=== PATIENT | female | born 1960 | race Caucasian/White ===

== ENCOUNTER → 2016-03-31 | Outpatient (CLI) | payer MEDICAID | LOC: RAD 15:43 | PROVIDERS: ATTEND Physician Assistant | DX: R05 Cough (principal) | CPT/HCPCS: 71020 ==

== ENCOUNTER → 2016-04-20 | Outpatient (CLI) | payer MEDICAID ==
[2016-04-20 17:11] LABS: ABSOLUTE EOSINOPHILS # (AUTO) 0.1 10^3/uL (0.0-0.6); ABSOLUTE LYMPHOCYTES (AUTO) 2.3 10^3/uL (0.5-4.7); ABSOLUTE MONOCYTES (AUTO) 0.7 10^3/uL (0.1-1.4); ABSOLUTE NEUT (AUTO) 4.9 10^3/uL (1.7-8.2); BASOPHILS % (AUTO) 0.6 % (0-2); EOSINOPHILS % (AUTO) 1.2 % (0-6); HEMATOCRIT 43.2 % (36.0-47.0); HEMOGLOBIN 14.8 g/dL (12.0-15.5); HGB HCT DIFFERENCE 1.2; LYMPHOCYTES % (AUTO) 28.7 % (13-45); MEAN CORPUSCULAR HEMOGLOBIN 31.6 pg (27.0-33.4); MEAN CORPUSCULAR HGB CONC 34.1 g/dL (32.0-36.0); MEAN CORPUSCULAR VOLUME 93 fl (80-97); MONOCYTES % (AUTO) 8.5 % (3-13); RED BLOOD COUNT 4.67 10^6/uL (3.72-5.28); RED CELL DISTRIBUTION WIDTH 12.7 % (11.5-14.0); WHITE BLOOD COUNT 8.1 10^3/uL (4.0-10.5)
[2016-04-20 17:30] LABS: ANION GAP 13 (5-19); BLOOD UREA NITROGEN 9 mg/dL (7-20); CALCIUM 10.3 mg/dL (8.4-10.2); CARBON DIOXIDE 27 mmol/L (22-30); CHLORIDE 100 mmol/L (98-107); CREATININE RESULT 0.61 mg/dL (0.52-1.25); GLUCOSE 206 mg/dL (75-110); POTASSIUM 4.6 mmol/L (3.6-5.0); SODIUM 139.9 mmol/L (137-145)
[2016-04-20 17:47] LABS: ERYTHROCYTE SEDIMENTATION RATE 18 mm/hr (0-30)
== END ==
LOC: OD 16:20
PROVIDERS: ATTEND Physician Assistant
DX: R51 Headache (principal)
CPT/HCPCS: 36415; 80048; 85025; 85652

== ENCOUNTER → 2016-04-28 | Outpatient (CLI) | payer MEDICAID | LOC: RAD 15:07 | PROVIDERS: ATTEND Physician Assistant | DX: R05 Cough (principal); R53.83 Other fatigue | CPT/HCPCS: 71260 ==

== ENCOUNTER 2016-07-16 23:14 | Emergency (ER) | payer MEDICAID ==
[2016-07-16 23:36] VITALS: BP 172/90
--- NOTE | 2016-07-17 09:44 | EKG REPORT ---
SEVERITY:- ABNORMAL ECG - SINUS RHYTHM ANTERIOR INFARCT, AGE INDETERMINATE : Confirmed by: Antony Combs 17-Jul-2016 09:44:21
== END 2016-07-17 04:33 | disposition left against medical advice (07) ==
LOC: ER 23:14
DX: Z53.21 Procedure and treatment not carried out due to patient leaving prior to being seen by health care provider (principal)
CPT/HCPCS: 93005; 93010

== ENCOUNTER → 2018-06-01 | Outpatient (CLI) | payer MEDICAID ==
[2018-06-01 16:27] LABS: ABSOLUTE BASOPHILS # (AUTO) 0.1 10^3/uL (0.0-0.2); ABSOLUTE LYMPHOCYTES (AUTO) 2.3 10^3/uL (0.5-4.7); ABSOLUTE MONOCYTES (AUTO) 0.5 10^3/uL (0.1-1.4); ABSOLUTE NEUT (AUTO) 4.4 10^3/uL (1.7-8.2); BASOPHILS % (AUTO) 0.7 % (0-2); EOSINOPHILS % (AUTO) 0.5 % (0-6); HEMATOCRIT 40.9 % (36.0-47.0); HEMOGLOBIN 14.3 g/dL (12.0-15.5); LYMPHOCYTES % (AUTO) 31.1 % (13-45); MEAN CORPUSCULAR HEMOGLOBIN 31.3 pg (27.0-33.4); MEAN CORPUSCULAR HGB CONC 34.9 g/dL (32.0-36.0); MEAN CORPUSCULAR VOLUME 90 fl (80-97); MONOCYTES % (AUTO) 6.7 % (3-13); PLATELET COUNT 199 10^3/uL (150-450); RED BLOOD COUNT 4.56 10^6/uL (3.72-5.28); RED CELL DISTRIBUTION WIDTH 13.4 % (11.5-14.0); TOTAL CELLS COUNTED % (AUTO) 100 %; WHITE BLOOD COUNT 7.3 10^3/uL (4.0-10.5)
[2018-06-01 16:49] LABS: ALANINE AMINOTRANSFERASE 18 U/L (9-52); ALBUMIN 4.7 g/dL (3.5-5.0); ALKALINE PHOSPHATASE 67 U/L (38-126); ANION GAP 11 (5-19); ASPARTATE AMINO TRANSFERASE 16 U/L (14-36); BILIRUBIN,DIRECT 0.3 mg/dL (0.0-0.4); BILIRUBIN,TOTAL 0.4 mg/dL (0.2-1.3); BLOOD UREA NITROGEN 13 mg/dL (7-20); CALCIUM 10.3 mg/dL (8.4-10.2); CARBON DIOXIDE 27 mmol/L (22-30); CHLORIDE 100 mmol/L (98-107); CREATINE KINASE 37 U/L (30-135); GLUCOSE 182 mg/dL (75-110); POTASSIUM 4.3 mmol/L (3.6-5.0); SODIUM 137.5 mmol/L (137-145); TOTAL PROTEIN 7.1 g/dL (6.3-8.2)
[2018-06-01 17:01] LABS: CREATINE KINASE MB 0.33 ng/mL (<4.55); TROPONIN I < 0.012 ng/mL
== END ==
LOC: PC 16:10
PROVIDERS: ATTEND Family Medicine
DX: R07.9 Chest pain, unspecified (principal)
CPT/HCPCS: 36415; 80053; 82550; 82553; 84484; 85025

== ENCOUNTER → 2018-10-12 | Outpatient (CLI) | payer MEDICAID ==
[2018-10-12 16:51] LABS: ABSOLUTE MONOCYTES (AUTO) 0.5 10^3/uL (0.1-1.4); ABSOLUTE NEUT (AUTO) 4.5 10^3/uL (1.7-8.2); BASOPHILS % (AUTO) 0.4 % (0-2); EOSINOPHILS % (AUTO) 0.5 % (0-6); HEMATOCRIT 40.9 % (36.0-47.0); HEMOGLOBIN 14.3 g/dL (12.0-15.5); LYMPHOCYTES % (AUTO) 37.1 % (13-45); MEAN CORPUSCULAR HEMOGLOBIN 31.3 pg (27.0-33.4); MEAN CORPUSCULAR HGB CONC 34.9 g/dL (32.0-36.0); MEAN CORPUSCULAR VOLUME 90 fl (80-97); MONOCYTES % (AUTO) 5.9 % (3-13); PLATELET COUNT 173 10^3/uL (150-450); RED BLOOD COUNT 4.57 10^6/uL (3.72-5.28); RED CELL DISTRIBUTION WIDTH 12.8 % (11.5-14.0); SEGMENTED NEUTROPHILS % (AUTO) 56.1 % (42-78); TOTAL CELLS COUNTED % (AUTO) 100 %
[2018-10-12 17:21] LABS: ALANINE AMINOTRANSFERASE 20 U/L (9-52); ALBUMIN 4.6 g/dL (3.5-5.0); ALKALINE PHOSPHATASE 68 U/L (38-126); ANION GAP 8 (5-19); ASPARTATE AMINO TRANSFERASE 17 U/L (14-36); BILIRUBIN,DIRECT 0.2 mg/dL (0.0-0.4); BILIRUBIN,TOTAL 0.4 mg/dL (0.2-1.3); BLOOD UREA NITROGEN 13 mg/dL (7-20); CARBON DIOXIDE 30 mmol/L (22-30); CHLORIDE 101 mmol/L (98-107); CREATINE KINASE 38 U/L (30-135); GLUCOSE 129 mg/dL (75-110); POTASSIUM 4.6 mmol/L (3.6-5.0)
[2018-10-12 17:25] LABS: CREATINE KINASE MB 0.72 ng/mL (<4.55)
[2018-10-12 17:32] LABS: TROPONIN I < 0.012 ng/mL
== END ==
LOC: OD 16:11
PROVIDERS: ATTEND Physician Assistant
DX: R07.9 Chest pain, unspecified (principal); R10.13 Epigastric pain
CPT/HCPCS: 36415; 80053; 82550; 82553; 83690; 84484; 85025

== ENCOUNTER → 2019-10-15 | Outpatient (CLI) | payer MEDICAID ==
--- NOTE | 2019-10-15 15:12 | WOMENS IMAGING REPORT ---
EXAM DESCRIPTION: 3D SCREENING MAMMO BILAT IMAGES COMPLETED DATE/TIME: 10/15/2019 2:49 pm REASON FOR STUDY: Z12.31 ENCOUNTER FOR SCREENING MAMMOGRAM FOR MALIGNANT NEOPLASM OF BREAST Z12.31 ENCNTR SCREEN MAMMOGRAM FOR MALIGNANT NEOPLASM OF RADHA COMPARISON: 08/20/2014, 07/30/2013, 01/23/2013 EXAM PARAMETERS: Views: Standard craniocaudal and mediolateral oblique views of each breast recorded using digital acquisition and breast tomosynthesis. Read with the assistance of CAD. .[facility] - [employer] Version 9.2 LIMITATIONS: None. FINDINGS: No suspicious masses, suspicious calcifications or architectural distortion. No areas of c oncern. IMPRESSION: NEGATIVE MAMMOGRAM. BIRADS 1. BREAST DENSITY: a. The breasts are almost entirely fatty. BIRAD: ASSESSMENT: 1 NEGATIVE RECOMMENDATION: ROUTINE SCREENING COMMENT: The patient has been notified of the results by letter per MQSA requirements. Additional no tification policies are in place for contacting patient with suspicious or incomplete findings. Quality ID #[id number]: The [employer] recommends an annual screening mammogram for women aged 40 years or over. This facility utilizes a reminder system to ensure that all patients receive reminder letters, and/or direct phone calls for appointments. This includes reminders for routine scr eening mammograms, diagnostic mammograms, or other Breast Imaging Interventions when appropriate. Th is patient will be placed in the appropriate reminder system. TECHNICAL DOCUMENTATION: FINDING NUMBER: (1) ASSESSMENT: (1) JOB ID: [id number] 2010 [employer]- All Rights Reserved Reading location - IP/workstation name: [email or web address]
== END ==
LOC: WI 14:30
PROVIDERS: ATTEND Physician Assistant
DX: Z12.31 Encounter for screening mammogram for malignant neoplasm of breast (principal)
CPT/HCPCS: 77063; 77067

== ENCOUNTER → 2020-01-31 | Outpatient (CLI) | payer MEDICAID ==
--- NOTE | 2020-01-31 13:47 | RADIOLOGY REPORT (SQ) ---
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 Images reviewed wi th bone, brain and subdural windows. Additional sagittal and coronal reconstructions were generated. Images stored on PACS. All CT scanners at this facility use dose modulation, iterative reconstruction, and/or weight based d osing when appropriate to reduce radiation dose to as low as reasonably achievable (ALARA). [facility]: Dose Right [facility]: CareDose [facility]: Dose Right [facility]: Teradose 4D [facility]: Passenger Baggage Xpress RADIATION DOSE: CT Rad equipment meets quality standard of care and radiation dose reduction techniq ues were employed. CTDIvol: 49.0 mGy. DLP: 986 mGy-cm. mGy. LIMITATIONS: None. FINDINGS: VENTRICLES: Normal size and contour. CEREBRUM: No masses. No hemorrhage. No midline shift. No evidence for acute infarction. Normal gra y/white matter differentiation. No areas of low density in the white matter. CEREBELLUM: No masses. No hemorrhage. No alteration of density. No evidence for acute infarction. Small posterior fossa arachnoid cyst. EXTRAAXIAL SPACES: No fluid collections. No masses. ORBITS AND GLOBE: No intra- or extraconal masses. Normal contour of globe without masses. CALVARIUM: No fracture. PARANASAL SINUSES: No fluid or mucosal thickening. SOFT TISSUES: No mass or hematoma. OTHER: No other significant finding. IMPRESSION: Small posterior fossa arachnoid cyst. No acute intracranial imaging findings. EVIDENCE OF ACUTE STROKE: NO. COMMENT: Quality ID # [id number]: Final reports with documentation of one or more dose reduction techniques (e.g., Automated exposure control, adjustment of the mA and/or kV according to patient size, use of iterative reconstruction technique) TECHNICAL DOCUMENTATION: JOB ID: [id number] 2013 2010 [employer]- All Rights Reserved Reading location - IP/workstation name: [email or web address]
--- OUTSIDE RECORDS SUMMARY | 2020-02-01 15:31 | XMS REPORT ---
:1960 Author Organization [facility] [place] [address] [place] [address] Care Team Providers Name Role Phone MURTAZA GUPTA MD, PA (OFFICE) Primary Care Physician JOSEPH Golden Attending Clinician Unavailable Allergies, Adverse Reactions, Alerts Allergy Name Allergy Status Severity Reaction(s) Onset Inactive Treat ing Comments Type Date Date Clinician Adhesive Propensity Active Mild Rash Tape-Silicon to adverse 2-25 es reactions 00:00: to drug 00 Penicillins Propensity Active Severe Rash to adverse 9-06 reactions 00:00: to drug 00 Nalbuphine Propensity Active Severe Rash 0 to adverse 9-06 reactions 00:00: to drug 00 Penicillins Propensity Active Severe Rash 0 to adverse 9-06 reactions 00:00: to drug 00 Tetracycline Propensity Active Rash to adverse 9-06 reactions 00:00: to drug 00 Simvastatin Propensity Active Severe Anaphylaxis 0 to adverse 9-06 reactions 00:00: to drug 00 Medications Ordered Filled Start Stop Current Ordering Indication Dosage Frequency Signature Comments Components Medication Medication Date Date Medication? Clinician (SIG) Name Name morphine 2019-03 Yes [id number] 30mg QD Take 1 Cap (CYNTHIA) 30 0-30 by mouth mg Oral 00:00: daily. Capsule, 00 Swallow Sust. capsule Release whole. Do Pellets NOT chew, crush, or dissolve. oxyCODONE 2019-03 Yes [id number] 5mg Q6H Take 1 Tab (ROXICODONE 0-30 by mouth ) 5 mg Oral 00:00: every 6 Tablet 00 hours as needed for Pain. May take 2 tabs if 1 is not effective. oxyCODONE No [id number] 5mg Q6H Take 1 Tab (ROXICODONE 7-24 by mouth ) 5 mg Oral 00:00: every 6 Tablet 00 hours as needed for Pain. May take 2 tabs if 1 is not effective. morphine No [id number] 30mg QD Take 1 Cap (CYNTHIA) 30 7-13 by mouth mg Oral 00:00: daily. Capsule, 00 Swallow Sust. capsule Release whole. Do Pellets NOT chew, crush, or dissolve. oxyCODONE No [id number] 5mg Q6H Take 1 Tab (ROXICODONE 1-14 by mouth ) 5 mg Oral 00:00: every 6 Tablet 00 hours as needed for Pain. May take 2 tabs if 1 is not effective. DULoxetine Yes [id number] 30mg QD Take 1-2 (CYMBALTA) 1-14 Caps by 30 mg Oral 00:00: mouth Capsule, 00 daily. Delayed Release(E.C .) ascorbic Yes 500mg QD Take 500 acid 1-10 mg by (VITAMIN C) 10:12: mouth 500 mg Oral 55 daily. Tablet tab morphine 2018-03 No [id number] 30mg QD Take 1 Cap (CYNTHIA) 30 2-30 01-27 by mouth mg Oral 00:00: 00:00 daily. Capsule, 00 :00 Swallow Sust. capsule Release whole. Do Pellets NOT chew, crush, or dissolve. oxyCODONE 2018-03 No [id number] 5mg Q6H Take 1 Tab (ROXICODONE 2-30 01-14 by mouth ) 5 mg Oral 00:00: 00:00 every 6 Tablet 00 :00 hours as needed for Pain. May take 2 tabs if 1 is not effective. morphine 2018-03 No [id number] 30mg QD Take 1 Cap (CYNTHIA) 30 0-08 by mouth mg Oral 00:00: daily. Capsule, 00 Swallow Sust. capsule Release whole. Do Pellets NOT chew, crush, or dissolve. oxyCODONE 2018-03 No [id number] 5mg Q6H Take 1 Tab (ROXICODONE 0-08 by mouth ) 5 mg Oral 00:00: every 6 Tablet 00 hours as needed for Pain. May take 2 tabs if 1 is not effective. empaglifloz Yes 25mg QD Take 1 Tab in 7-12 by mouth (JARDIANCE) 00:00: daily. 25 mg Oral 00 Tablet morphine No [id number] 30mg QD Take 1 Cap (CYNTHIA) 30 7-12 by mouth mg Oral 00:00: daily. Capsule, 00 Swallow Sust. capsule Release whole. Do Pellets NOT chew, crush, or dissolve. oxyCODONE No [id number] 5mg Q6H Take 1 Tab (ROXICODONE 7-12 by mouth ) 5 mg Oral 00:00: every 6 Tablet 00 hours as needed for Pain. May take 2 tabs if 1 is not effective. sitagliptin No Take by phosphate 4-05 mouth. (JANUVIA 10:13: ORAL) 57 hydroCHLORO 2019- No 25mg QD Take 25 mg thiazide 06-23-10 by mouth (HYDRODIURI 10:13: 00:00 daily. L) 25 mg 57 :00 Oral Tablet cholecalcif Yes [id number] Take russ, - 50,000 mg vitamin D3, 10:12: by mouth. 50,000 unit 36 Oral Tablet metFORMIN Yes 500mg Take 500 (GLUCOPHAGE 4-05 mg by ) 500 mg 10:12: mouth Oral Tablet 36 twice a day with meals. canaglifloz No 300mg Take 300 in 4-05 mg by (INOKANA) 10:12: mouth 300 mg Oral 36 before Tablet breakfast. Vit 2019- No Take by C-Ascorbate 06-23 mouth. Ca-Ascorb 10:12: 00:00 Sod 500 36 :00 mg/15 mL Oral Liquid Lysine 2019- No 1000mg QD Take 1,000 1,000 mg 06-23-10 mg by Oral Tablet 10:12: 00:00 mouth 36 :00 daily. alteplase 2019- No 2mg 2 mg, (CATHFLO 06-23 04-05 Central ACTIVASE) 09:35: 10:00 Venous injection 2 00 :00 Line, mg ONCE, Tue06/23/18 at 0935, For 1 dose
Fabiola men Location: left chest infusaport [facility] n[facility] with 2.2 mL of sterile water for injection group home. Do NOT shake.&nbs p; Re sults in concentrat ion of 1 mg/mL.
oxyCODONE No [id number] 5mg Q6H Take 1 Tab (ROXICODONE 4-05 by mouth ) 5 mg Oral 00:00: every 6 Tablet 00 hours as needed for Pain. May take 2 tabs if 1 is not effective. TRULICITY Yes inject ONE 0.75 mg/0.5 3-29 WEEKLY mL 00:00: Subcutaneou 00 s Pen Injector morphine No [id number] 30mg QD Take 1 Cap (CYNTHIA) 30 3-25 by mouth mg Oral 00:00: daily. Capsule, 00 Swallow Sust. capsule Release whole. Do Pellets NOT chew, crush, or dissolve. oxyCODONE 2019- No [id number] 5mg Q6H Take 1 Tab (ROXICODONE 3-25 04-05 by mouth ) 5 mg Oral 00:00: 00:00 every 6 Tablet 00 :00 hours as needed for Pain. May take 2 tabs if 1 is not effective. atorvastati Yes 40mg QD Take 40 mg n (LIPITOR) 3-21 by mouth 40 mg Oral 00:00: daily. Tablet 00 buSPIRone No 7.5mg Q.5D Take 7.5 (BUSPAR) 3-11 mg by 7.5 mg Oral 00:00: mouth Tablet 00 twice a day. oxyCODONE No [id number] 5mg Q6H Take 1 Tab (ROXICODONE 1-18 by mouth ) 5 mg Oral 00:00: every 6 Tablet 00 hours as needed for Pain. May take 2 tabs if 1 is not effective. albuterol No [id number] 2{puff} Q1D Take 2 HFA 1-04 Puffs by (PROVENTIL 00:00: inhalation HFA;VENTOLI 00 as needed N HFA) 90 for mcg/actuati Wheezing. on Inhalation HFA Aerosol Inhaler albuterol No [id number] 2{puff} Q1D Take 2 HFA 1-04 Puffs by (PROVENTIL 00:00: inhalation HFA;VENTOLI 00 as needed N HFA) 90 for mcg/actuati Wheezing. on Inhalation HFA Aerosol Inhaler albuterol Yes [id number] 2{puff} Q1D Take 2 HFA 1-04 Puffs by (PROVENTIL 00:00: inhalation HFA;VENTOLI 00 as needed N HFA) 90 for mcg/actuati Wheezing. on Inhalation HFA Aerosol Inhaler DULoxetine Yes [id number] 30mg QD Take 1-2 (CYMBALTA) 1-04 Caps by 30 mg Oral 00:00: mouth Capsule, 00 daily. Delayed Release(E.C .) morphine Yes [id number] 30mg QD Take 1 Cap (CYNTHIA) 30 1-04 by mouth mg Oral 00:00: daily. Capsule, 00 Swallow Sust. capsule Release whole. Do Pellets NOT chew, crush, or dissolve. DULoxetine 2020- No [id number] 30mg QD Take 1-2 (CYMBALTA) 1-04 01-14 Caps by 30 mg Oral 00:00: 00:00 mouth Capsule, 00 :00 daily. Delayed Release(E.C .) oxyCODONE 2019- No [id number] 5mg Q6H Take 1 Tab (ROXICODONE 1-04 01-15 by mouth ) 5 mg Oral 00:00: 00:00 every 6 Tablet 00 :00 hours as needed for Pain. May take 2 tabs if 1 is not effective. morphine No Chronic 30mg Take 1 Cap (CYNTHIA) 30 8-10 pain by mouth mg Oral 00:00: syndrome daily. Capsule, 00 Swallow Sust. capsule Release whole. Do Pellets NOT chew, crush, or dissolve. Vit Yes Take by C-Ascorbate 5-11 mouth. Ca-Ascorb 10:00: Sod 500 05 mg/15 mL Oral Liquid cyanocobala Yes 1000ug QD Take 1 Tab min 2-09 by mouth (VITAMIN 00:00: daily. B-12) 1,000 00 mcg Oral Tablet Problems Condition Condition Condition Status Onset Resolution Last Treatin g Comments Name Details Category Date Date Treatment Clinician Date Chronic Chronic [id number] Active 2019-03 headache headache 0-30 00:00: 00 Left Left [id number] Active 2016-03 [facility] w: carotid carotid 03-23 Overview : artery artery 00:00: 85%. stenosis stenosis 00 Tobacco Tobacco [id number] Active 2016-03 [facility] w: abuse abuse - Started disorder disorder 00:00: smokin g 00 at age 15, abou t 1 PPD History of History of Problem Active 2016-03 cigarette cigarette 03-23 smoking smoking 00:00: 00 Acute Acute 95635885 Active left-sided left-sided 5-16 low back low back 00:00: pain pain 00 without without sciatica sciatica Left lower Left lower 24041580 Active quadrant quadrant 5-16 pain pain 00:00: 00 Malignant Malignant 80913651 Active Ove rview: lymphoma, lymphoma, 2-10 Admi tted small small 00:00: to [place] w lymphocytic lymphocytic 00 [facility] 09/20 wit h Hgb 7.2/Hct 21.6 [place] ing hx o f false positive FTA Treated with packed RBC transfus i ons Apparent allergic reaction at the end of the transfus i ons [place] coun t elevated at 12.5 %, Direc t Connor test positive Iron profile NL, haptoglo b in level low GI evaluati o n NL CT Scans of chest, abdomen/ pelvis did not reveal adenopat h y. Mild splenome g klarissa noted. 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 Cyclin D stain negative Seen in initial consulta t ion 12/04/02. 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 carotid carotid 00 artery artery Diabetes Diabetes 31620509 Active mellitus mellitus 11-24 00:00: 00 Migraines Migraines 35890944 Active 11-24 00:00: 00 Chronic Chronic 53145627 Active [facility] w: pain pain 11-24 Peripher a 00:00: l 00 neuropat h y Depression Depression 96889804 Active 11-24 00:00: 00 Peripheral Peripheral 59149975 Active neuropathy neuropathy 11-24 00:00: 00 COPD COPD 08353169 Active (chronic (chronic 11-24 obstructive obstructive 00:00: pulmonary pulmonary 00 disease) disease) NHL NHL [id number] Resolve 2018-02-24 2018-02-24 (non-Hodgki (non-Hodgki d 11-21 00:00:00 16:08:30 n's n's 00:00: lymphoma) lymphoma) 00 Yeast Yeast 71565689 Resolve 2012-032013-11-30 2013-11-30 infection infection d 2-18 00:00:00 09:26:37 00:00: 00 Procedures Procedure Date / Time Performed Performing Clinician Trinidad damian CT LOW DOSE CHEST W/O IV CONTRAST 2019-04-11 16:07:04 Tammy Knott (OUTPATIENT ONLY) COMPREHENSIVE METABOLIC PANEL 2019-03-30 14:27:00 KnuppJaylon LD (LDH) 2019-03-30 14:27:00 Knupp, Jaylon Baker DIRECT ANTIGLOBULIN (MANOHAR) 2019-03-30 14:27:00 Akshat Knott CBC WITH DIFFERENTIAL 2019-03-30 14:27:00 Knupp, Jaylon Baker MANUAL DIFFERENTIAL 2019-03-30 14:27:00 KnuppJaylon CBC WITH DIFFERENTIAL 2019-03-30 14:27:00 KnuppJaylon MANOHAR IGG 2019-03-30 14:27:00 Akshat Knott MANOHAR C3 2019-03-30 14:27:00 Akshat Knott COMPREHENSIVE METABOLIC PANEL 2018-12-29 13:26:00 KnuppJaylon LD (LDH) 2018-12-29 13:26:00 Knupp, Jaylon Baker CBC WITH DIFF 2018-12-29 13:26:00 KnuppJaylon COMPREHENSIVE METABOLIC PANEL 2018-09-29 13:08:00 KnuppJaylon CBC WITH DIFF 2018-09-29 13:08:00 KnuppJaylon COMPREHENSIVE METABOLIC PANEL 2018-06-23 13:22:00 KnuppJaylon LD (LDH) 2018-06-23 13:22:00 Knupp, Jaylon Baker CBC WITH DIFF 2018-06-23 13:22:00 KnuppJaylon DIRECT ANTIGLOBULIN (MANOHAR) 2018-06-23 13:22:[address] LOW DOSE CHEST W/O IV CONTRAST 2018-04-05 16:06:17 Radha Singleton (OUTPATIENT ONLY) URINALYSIS, COMPLETE 2018-03-24 15:12:00 Yoli Snigleton COMPREHENSIVE METABOLIC PANEL 2018-03-24 13:33:00 Jaylon Mckenzie LD (LDH) 2018-03-24 13:33:00 Jaylon Mckenzie CBC WITH DIFF 2018-03-24 13:33:00 Jaylon Mckenzie Results Test Description Test Time Test Comments Text Results Atomic Results Result Comments CT LOW DOSE CHEST W/O IV 2019-04-11 11:14:00 IMPRESSIO N: 1. ACR Lung Rads: CONTRAST (OUTPATIENT ONLY) Category: 1 - Negative - Recommendation: Continue jeanie ual screening with LDCT in 12 mo nths. 2. Mild coronary artery atherosclerotic disease. 3. No acute cardiopulmonary abnorm ality. 4. Other findings and descri ption as above. Reading Doctor: Freddy Rose Signature by: Gurpreet RoseLOW-DOSE NONCONTRAST EST CT: 04/11/2019 HISTORY: Vielka g cancer annual screening. Cur rent cigarette smoker. 40 pack ye ar history of cigarette smoking . Z87.891 Personal history of tobacco use/personal history of nicotine dependence. Persona l history of lymphoma. TECHNIQ UE: Low dose multidetector CT th rough chest without contrast. Multiplanar reconstruction s performed. COMPARISON: Low-d ose noncontrast chest CT perform ed 04/05/2018. FINDINGS: No new or suspicious pulmonary nodule or mass. No acute airspace dise ase or pleural effusion. The centra l airways appear patent. There is no pneumothorax. There is a rig ht IJ Port-A-Cath with the tip abd omen the cavoatrial junction. The visualized thyroid gland breanna ears normal. No significant thora cic lymphadenopathy. Heart josue l in size. Coronary artery atherosclerotic disease. No pericardial effusion. Visual ized liver, spleen, pancreas, gallbladder, adrenal glands, and kidneys demonstrate no acute abnormalities within the limitations of low-dose noncontrast imaging. No uppe r abdominal lymphadenopathy or free fluid. No significant axilla ry or chest wall lymphadenopathy. No suspicious osseous lesions. Mild degenerative changes of the spine. Interface, Radresults_Incomi ng - 04/11/2019 11:17 AM ESTLOW-D OSE NONCONTRAST CHEST CT: 020 HISTORY: Lung cancer annual screening. Current cigarette smoker. 40 pack year history of cigarette smoking. Z87.891 Personal history of tobacco use/personal history of ludin sukh dependence. Personal history of lymphoma. TECHNIQUE: Low dos e multidetector CT through [facility] without contrast. Multiplana r reconstructions performed. COMPARISON: Low-dose noncont rast chest CT performed 04/05/2018 . FINDINGS: No new or suspicio us pulmonary nodule or mass. No acute airspace disease or pleural effusion. The central airway s appear patent. There is no pneumothorax. There is a rig ht IJ Port-A-Cath with the tip abd omen the cavoatrial junction. The visualized thyroid gland breanna ears normal. No significant thora cic lymphadenopathy. Heart josue l in size. Coronary artery atherosclerotic disease. No pericardial effusion. Visual ized liver, spleen, pancreas, gallbladder, adrenal glands, and kidneys demonstrate no acute abnormalities within the limitations of low-dose noncontrast imaging. No uppe r abdominal lymphadenopathy or free fluid. No significant axilla ry or chest wall lymphadenopathy. No suspicious osseous lesions. Mild degenerative changes of the spine. IMPRESSION IMPRESSION: 1. AC R Lung Rads: Category: 1 - Negative - Recommendation: Continue jeanie ual screening with LDCT in 12 mo nths. 2. Mild coronary artery atherosclerotic disease. 3. No acute cardiopulmonary abnorm ality. 4. Other findings and descri ption as above. Reading Doctor: Gurpreet Rose Electronic Signature by: Israel Rose MANOHAR C3 2019-03-30 21:48:00 Test Item Value Reference Range Comments DATC3 (test code = 574) Negative DIRECT ANTIGLOBULIN (MANOHAR)2019-03-30 21:47:00 Test Item Value Reference Range Comments MANOHAR POLY (test code = 636657387156) Positive ABO_INTEP (test code = 11380751440) O RH_INTEP (test code = 59995707667) Positive MANOHAR [id number] 21:38:00 Test Item Value Reference Range Comments MANOHAR IGG (test code = 970191362575) Positive CBC WITH [id number] 10:12:00 Test Item Value Reference Range Comments WBC (White Blood Cell Count) 6.16 k/uL 4.50- 11.00 k/uL (test code = 6690-2) RBC (Red Blood Cell Count) 4.45 M/uL 3.80- 5.20 M/uL (test code = 789-8) Hemoglobin (test code = 13.9 g/dL 12-16 718-7) Hematocrit (test code = 41.2 % 35-47 4544-3) MCV (Mean Corpuscular Volume) 92.6 fL 80-100 (test code = 787-2) MCH (Mean Corpuscular 31.2 pg 26-34 Hemoglobin) (test code = 785-6) MCHC (Mean Corpuscular 33.7 g/dL 32-36 Hemoglobin Concentration) (test code = 786-4) RDW (Red Cell Distribution 12.2 % 11.5-14.5 Width) (test code = 788-0) Platelet Count (test code = 164 k/uL 150- 440 k/uL 777-3) MPV (Mean Platelet Volume) 10.3 fL 7.4-10.6 (test code = 50069-5) Nucleated RBC (test code = 0.0 /100 WBC 0 /100 WBC 51662-9) Absolute Nucleated RBC (#) <0.01 0 k/uL (test code = 771-6) Blood Cell Morphology (test NO SIGNIFICANT RBC MORPHOLOGIC code = 2671917935) ABNORMALITIES SEEN. MANUAL [id number] 10:12:00 Test Item Value Reference Range Comments Neutrophils (%) (test code = 27385-9) 44 % Bands (%) (test code = 764-1) 0 % Lymphocytes (%) (test code = 736-9) 46 % Monocytes (%) (test code = 5905-5) 6 % Eosinophils (%) (test code = 713-8) 1 % Basophils (%) (test code = 706-2) 3 % Absolute Neutrophils/Bands (#) (test code = 2.71 k/uL 1.80 - 7.70 k/uL 6280171128) Absolute Lymphocytes (#) (test code = 731-0) 2.83 k/uL 1.0 0- 4.80 k/uL Absolute Monocytes (#) (test code = 742-7) 0.37 k/uL 0.00- 0.80 k/uL Absolute Eosinophils (#) (test code = 711-2) 0.06 k/uL 0.0 0- 0.50 k/uL Absolute Basophils (#) (test code = 704-7) 0.18 k/uL 0.00- 0.20 k/uL COMPREHENSIVE METABOLIC [id number] 09:59:00 Test Item Value Reference Range Comments Sodium (test code = 2951-2) 138 mEq/L 136- 145 mEq/L Potassium (test code = 2823-3) 4.2 mEq/L 3.4- 4.4 mEq/L Chloride (test code = 2075-0) 107 mEq/L 98- 107 mEq/L CO2 (test code = 2027-9) 23 mEq/L 22- 29 mEq/L Calcium (test code = 49009-9) 9.3 mg/dL 8.4-10.2 Glucose (test code = 2345-7) 162 mg/dL 70-105 BUN (test code = 3094-0) 7 mg/dL 10-20 Creatinine (test code = 2160-0) 0.78 mg/dL 0.57-1.11 Glomerular Filtration Rate (test code 85 mL/Min/1.73 m2 >=59 mL/ Min/1.73 m2 = 89235-6) Protein, Total (test code = 2885-2) 6.8 g/dL 6.4-8.3 Albumin (test code = 1751-7) 4.5 g/dL 3.5-5.2 Bilirubin, Total (test code = 1975-2) 0.3 mg/dL 0.1-1.2 Alk Phosphatase (test code = 6768-6) 68 U/L 40-150 SGOT (AST) (test code = 1920-8) 10 U/L 5-34 SGPT (ALT) (test code = 1742-6) 13 U/L 0-55 Anion Gap (test code = 31814-2) 8 mEq/L 4- 12 mEq/L Bun:Creat Ratio (test code = 3097-3) 8.97 Osmo (Calc'd) (test code = 63857-6) 288 mOsm/kg mOsm/kg Globulin (Calc'd) (test code = 2.3 g/dL 67607-0) A:G Ratio (test code = 1759-0) 1.96 Lab Interpretation (test code = Abnormal 44463-2) LD (LDH)2019-03-30 09:59:00 Test Item Value Reference Range Comments Lactate Dehydrogenase (LD; LDH) (test code = 188 U/L 125 -220 79084-2) Lab Interpretation (test code = 65340-3) Normal LD (LDH)2018-12-29 09:55:04 Test Item Value Reference Range Comments Lactate Dehydrogenase (LD; LDH) (test code = 168 U/L 125 -220 16884-1) COMPREHENSIVE METABOLIC [id number] 09:55:04 Test Item Value Reference Range Comments Sodium (test code = 2951-2) 140 mEq/L 136- 145 mEq/L Potassium (test code = 2823-3) 4.7 mEq/L 3.4- 4.4 mEq/L Chloride (test code = 2075-0) 105 mEq/L 98- 107 mEq/L Bicarbonate (TCO2) (test code = 2027-9) 24 mEq/L 22- 29 m Eq/L Calcium (test code = 36734-0) 9.8 mg/dL 8.4-10.2 Glucose (test code = 2345-7) 176 mg/dL 70-105 BUN (test code = 3094-0) 10 mg/dL 10-20 Protein, Total (test code = 2885-2) 7.0 g/dL 6.4-8.3 Albumin (test code = 1751-7) 4.4 g/dL 3.5-5.2 Bilirubin, Total (test code = 1975-2) 0.6 mg/dL 0.1-1.2 Alkaline Phosphatase (test code = 64 U/L 40-150 6768-6) AST (SGOT) (test code = 1920-8) 16 U/L 5-34 Creatinine (test code = 2160-0) 0.79 mg/dL 0.57-1.11 Anion Gap (calc.) (test code = 94284-0) 11 mEq/L 4- 12 mE q/L ALT (SGPT) (test code = 1742-6) 23 U/L <55 GFR, non-AA, (est.) (test code = 75 mL/Min/1.73 m2 >59 mL/Min/1. 73 m2 63341-9) GFR, AA, (est.) (test code = 32734-6) >90 >59 mL/Min /1.73 m2 Lab Interpretation (test code = Abnormal 17786-8) CBC WITH [id number] 09:36:34 Test Item Value Reference Range Comments WBC (test code = 6690-2) 6.52 k/uL 4.5- 11.0 k/uL RBC (test code = 789-8) 4.40 M/uL 3.8- 5.2 M/uL Hemoglobin (test code = 718-7) 13.6 g/dL 12-16 Hematocrit (calc.) (test code = 4544-3) 40.7 % 35-47 MCV (test code = 787-2) 92.5 fL 80-100 MCH (test code = 785-6) 30.9 pg 26-34 MCHC (calc.) (test code = 786-4) 33.4 g/dL 32-36 RDW (test code = 788-0) 13.0 % 11.5-14.5 Platelet (test code = 777-3) 167 k/uL 150- 440 k/uL Mean Platelet Volume (test code = 80628-8) 10.6 fL 7.4-1 0.6 Differential Type (test code = 741157) AUTOMATED Neutrophil (%) (test code = 72689-8) 51 % Lymphocyte (%) (test code = 736-9) 40 % Monocyte (%) (test code = 5905-5) 8 % Eosinophil (%) (test code = 713-8) 1 % Basophil (%) (test code = 706-2) 0 % Immature Granulocytes (%) (test code = 64096-7) 0 % Neutrophil (#) (test code = 07808-5) 3.29 k/uL 1.8- 7.7 k/ uL Lymphocyte (#) (test code = 731-0) 2.61 k/uL 1.0- 4.8 k/uL Monocyte (#) (test code = 742-7) 0.53 k/uL 0.0- 0.8 k/uL Eosinophil (#) (test code = 712693) 0.06 k/uL 0.0- 0.5 k/u L Basophil (#) (test code = 704-7) 0.02 k/uL 0.0- 0.2 k/uL Immature Granulocytes (#) (test code = 60134-9) 0.01 k/uL 0 k/uL Lab Interpretation (test code = 29048-1) Abnormal CBC WITH [id number] 09:45:13 Test Item Value Reference Range Comments WBC (test code = 6690-2) 6.17 k/uL 4.5- 11.0 k/uL RBC (test code = 789-8) 4.44 M/uL 3.8- 5.2 M/uL Hemoglobin (test code = 718-7) 13.8 g/dL 12-16 Hematocrit (calc.) (test code 41.3 % 35-47 = 4544-3) MCV (test code = 787-2) 93.0 fL 80-100 MCH (test code = 785-6) 31.1 pg 26-34 MCHC (calc.) (test code = 33.4 g/dL 32-36 786-4) RDW (test code = 788-0) 12.5 % 11.5-14.5 Platelet (test code = 777-3) 193 k/uL 150- 440 k/uL Mean Platelet Volume (test 10.2 fL 7.4-10.6 code = 98419-6) Differential Type (test code = MANUAL 984769) Band (%) (test code = 764-1) 0 % Neutrophil (%) (test code = 58 % 770-8) Lymphocyte (%) (test code = 38 % 023737) Monocyte (%) (test code = 4 % 136393) Eosinophil (%) (test code = 0 % 508496) Basophil (%) (test code = 0 % 528130) Neutrophil/Band (#) (test code 3.58 k/uL 1.8- 7.7 k/uL = 456222) Lymphocyte (#) (test code = 2.34 k/uL 1.0- 4.8 k/uL 795001) Monocyte (#) (test code = 0.25 k/uL 0.0- 0.8 k/uL 444110) Eosinophil (#) (test code = 0.00 k/uL 0.0- 0.5 k/uL 711-2) Basophil (#) (test code = 0.00 k/uL 0.0- 0.2 k/uL 079066) Blood Cell Morphology (test NO SIGNIFICANT RBC MORPHOLOGIC code = 433015) ABNORMALITIES SEEN COMPREHENSIVE METABOLIC [id number] 09:37:12 Test Item Value Reference Range Comments Sodium (test code = 2951-2) 139 mEq/L 136- 145 mEq/L Potassium (test code = 2823-3) 4.8 mEq/L 3.4- 4.4 mEq/L Chloride (test code = 2075-0) 105 mEq/L 98- 107 mEq/L Bicarbonate (TCO2) (test code = 8-9) 27 mEq/L 22- 29 m Eq/L Calcium (test code = 13910-7) 9.8 mg/dL 8.4-10.2 Glucose (test code = 2345-7) 174 mg/dL 70-105 BUN (test code = 3094-0) 8 mg/dL 10-20 Protein, Total (test code = 2885-2) 6.9 g/dL 6.4-8.3 Albumin (test code = 1751-7) 4.3 g/dL 3.5-5.2 Bilirubin, Total (test code = 1975-2) 0.3 mg/dL 0.1-1.2 Alkaline Phosphatase (test code = 74 U/L 40-150 6768-6) AST (SGOT) (test code = 1920-8) 10 U/L 5-34 Creatinine (test code = 2160-0) 0.80 mg/dL 0.57-1.11 Anion Gap (calc.) (test code = 73844-1) 7 mEq/L 4- 12 mE q/L ALT (SGPT) (test code = 1742-6) 11 U/L <55 GFR, non-AA, (est.) (test code = 74 mL/Min/1.73 m2 >59 mL/Min/1. 73 m2 52775-1) GFR, AA, (est.) (test code = 91192-2) >90 >59 mL/Min /1.73 m2 Lab Interpretation (test code = Abnormal 07264-9) DIRECT ANTIGLOBULIN (MANOHAR)2018-06-23 11:21:04 Test Item Value Reference Range Comments Blood Type ABO, Rh (test code = 882-1) O POS Direct Antiglobulin Test (MANOHAR), Polyspecific (test POS NEG^NEG code = 1007-4) Direct Antiglobulin Test (MANOHAR), IgG (test code = POS 90005-6) Direct Antiglobulin Test (MANOHAR), Complement (test code NEG NEG^NEG = 60504-2) LD (LDH)2018-06-23 10:10:33 Test Item Value Reference Range Comments Lactate Dehydrogenase (LD; LDH) (test code = 179 U/L 125 -220 58680-7) COMPREHENSIVE METABOLIC [id number] 10:10:33 Test Item Value Reference Range Comments Sodium (test code = 2951-2) 137 mEq/L 136- 145 mEq/L Potassium (test code = 2823-3) 4.4 mEq/L 3.4- 4.4 mEq/L Chloride (test code = 2075-0) 104 mEq/L 98- 107 mEq/L Bicarbonate (TCO2) (test code = 2027-9) 23 mEq/L 22- 29 m Eq/L Calcium (test code = 26969-3) 9.4 mg/dL 8.4-10.2 Glucose (test code = 2345-7) 185 mg/dL 70-105 BUN (test code = 3094-0) 12 mg/dL 10-20 Protein, Total (test code = 2885-2) 6.8 g/dL 6.4-8.3 Albumin (test code = 1751-7) 4.3 g/dL 3.5-5.2 Bilirubin, Total (test code = 1975-2) 0.3 mg/dL 0.1-1.2 Alkaline Phosphatase (test code = 62 U/L 40-150 6768-6) AST (SGOT) (test code = 1920-8) 11 U/L 5-34 Creatinine (test code = 2160-0) 0.80 mg/dL 0.57-1.11 Anion Gap (calc.) (test code = 15449-1) 10 mEq/L 4- 12 mE q/L ALT (SGPT) (test code = 1742-6) 11 U/L <55 GFR, non-AA, (est.) (test code = 74 mL/Min/1.73 m2 >59 mL/Min/1. 73 m2 57857-2) GFR, AA, (est.) (test code = 09712-0) >90 >59 mL/Min /1.73 m2 Lab Interpretation (test code = Abnormal 90915-8) CBC WITH [id number] 09:53:40 Test Item Value Reference Range Comments WBC (test code = 6690-2) 6.99 k/uL 4.5- 11.0 k/uL RBC (test code = 789-8) 4.42 M/uL 3.8- 5.2 M/uL Hemoglobin (test code = 718-7) 13.7 g/dL 12-16 Hematocrit (calc.) (test code = 4544-3) 40.9 % 35-47 MCV (test code = 787-2) 92.5 fL 80-100 MCH (test code = 785-6) 31.0 pg 26-34 MCHC (calc.) (test code = 786-4) 33.5 g/dL 32-36 RDW (test code = 788-0) 12.6 % 0-14.5 Platelet (test code = 777-3) 181 k/uL 150- 440 k/uL Mean Platelet Volume (test code = 57795-4) 10.4 fL 7.4-1 0.6 RBC Nucleated (test code = 20562-1) 0.0 /100 WBC /100 WBC Absolute NRBC (test code = 771-6) <0.01 k/uL Neutrophil (%) (test code = 64745-8) 62 % Lymphocyte (%) (test code = 736-9) 30 % Monocyte (%) (test code = 5905-5) 7 % Eosinophil (%) (test code = 713-8) 1 % Basophil (%) (test code = 706-2) 0 % Immature Granulocytes (%) (test code = 00924-2) 0 % Neutrophil (#) (test code = 26451-2) 4.28 k/uL 1.8- 7.7 k/ uL Lymphocyte (#) (test code = 731-0) 2.12 k/uL 1.0- 4.8 k/uL Monocyte (#) (test code = 742-7) 0.50 k/uL 0.0- 0.8 k/uL Eosinophil (#) (test code = 711-2) 0.05 k/uL 0.0- 0.5 k/uL Basophil (#) (test code = 704-7) 0.02 k/uL 0.0- 0.2 k/uL Immature Granulocytes (#) (test code = 71591-2) 0.02 k/uL k/uL CT LOW DOSE CHEST W/O IV CONTRAST (OUTPATIENT ONLY)2018-04-05 11:23:00 Impression: 1. ACR Lung Rads: Category: 1 - Negative - Recommendation: Continue annual screening with LDCT in 12 months. 2. ACR Lung Rads Notes: None. Reading Doctor: Librado Woodson Electronic Signature by: Librado Woodson Clinical History:Lung cancer annual screening, asymptomatic, smoker hxor current (less than 30 pack-yrs) Z87.891 Personal history of tobacco use/personal history of nicotine dependence 68791 1 30 No, Lung Cancer Screening Technique: Spiral low dose multidetector CT through chest without contrast. Multiplanar reconstructions performed. Comparison: None. Findings:Lungs: Clear. Central Airways: Patent. Pleura: No evidence of pneumothorax or pleural effusion. Heart and Pericardium: Normal heart size. No pericardial effusion. Lymph nodes: No adenopathy. Vessels: Atherosclerotic changes aorta and coronary arteries. No evidence of aortic aneurysm. Right IJ Mediportin place. Upper abdomen: No acute abnormality. Bones: Spondylosis thoracic spine. Interface, Radresults_ - 04/05/2018 11:26 AM EST Clinical History: Lung cancer annual screening, asymptomatic, smoker hx or current (less than 30 pack-yrs) Z87.891 Personal history of tobacco use/personal historyof nicotine dependence 08506 1 30 No , Lung Cancer Screening Technique: Spiral low dose multidetector CT through chest without contrast. Multiplanar reconstructions performed. Comparison: None. Findings: Lungs: Clear. Central Airways: Patent. Pleura: No evidence of pneumothorax or pleural effusion. Heart and Pericardium: Normal heart size. No pericardial effusion. Lymph nodes: No adenopathy. Vessels:Atherosclerotic changes aorta and coronary arteries. No evidence of aortic aneurysm. Right IJ Mediport in place. Upper abdomen: No acute abnormality. Bones: Spondylosis thoracic spine. IMPRESSION Impression: 1. ACR Lung Rads: Category: 1 - Negative - Recommendation: Continue annual screening with LDCTin 12 months. 2. ACR Lung Rads Notes: None. Reading Doctor: Librado Woodson Electronic Signature by: Librado WoodsonURINALYSIS, [id number] 11:21:29 Test Item Value Reference Range Comments Appearance, urine (test code = 5767-9) CLEAR CLEAR^TRACI AR Color, urine (test code = 5778-6) STRAW YEL^YELLOW Specific [place], urine (test code = 5811-5) 1.035 1.0 05-1.030 pH, urine (test code = 5803-2) 5.5 4.5-8.0 Protein, urine (test code = 5804-0) NEG NEG^NEG Glucose, urine (test code = 5792-7) 3+ NEG^NEG Ketones, urine (test code = 5797-6) NEG NEG^NEG Hemoglobin, urine (test code = 5794-3) NEG NEG^NEG Urobilinogen, urine (test code = 09641-6) NORM NORM^N ORM Bilirubin, urine (test code = 5770-3) NEG NEG^NEG Nitrites, urine (test code = 5802-4) NEG NEG^NEG Leukocyte Esterase, urine (test code = 5799-2) 2+ N EG^NEG RBC, urine (test code = 47408-9) 1-4 0 /HPF WBC, urine (test code = 5821-4) 5-19 0 /HPF Epithelial Cells, urine (test code = 5787-7) FEW /HP F Epithelial Cells, Non-Squamous, urine (test code = FEW /HPF 48074-1) Bacteria, urine (test code = 05221-3) NONE SEEN NNSN^NONE SEEN Lab Interpretation (test code = 11434-5) Abnormal LD (LDH)2018-03-24 09:12:54 Test Item Value Reference Range Comments Lactate Dehydrogenase (LD; LDH) (test code = 194 U/L 125 -220 57647-4) COMPREHENSIVE METABOLIC [id number] 09:12:54 Test Item Value Reference Range Comments Sodium (test code = 2951-2) 142 mEq/L 136- 145 mEq/L Potassium (test code = 2823-3) 4.9 mEq/L 3.4- 4.7 mEq/L Chloride (test code = 2075-0) 103 mEq/L 98- 107 mEq/L Bicarbonate (TCO2) (test code = 8-9) 27 mEq/L 22- 29 m Eq/L Calcium (test code = 54706-8) 10.8 mg/dL 8.4-10.2 Glucose (test code = 2345-7) 282 mg/dL 70-105 BUN (test code = 3094-0) 12 mg/dL 10-20 Protein, Total (test code = 2885-2) 8.0 g/dL 6.4-8.3 Albumin (test code = 1751-7) 4.8 g/dL 3.5-5.2 Bilirubin, Total (test code = 1975-2) 0.5 mg/dL 0.1-1.2 Alkaline Phosphatase (test code = 84 U/L 40-150 6768-6) AST (SGOT) (test code = 1920-8) 10 U/L <55 Creatinine (test code = 2160-0) 1.17 mg/dL 0.57-1.11 Anion Gap (calc.) (test code = 13648-1) 12 mEq/L 4- 12 mE q/L ALT (SGPT) (test code = 1742-6) 10 U/L 5-34 GFR, non-AA, (est.) (test code = 48 mL/Min/1.73 m2 >59 mL/Min/1. 73 m2 90885-7) GFR, AA, (est.) (test code = 17237-0) 58 mL/Min/1.73 m2 >59 mL/M in/1.73 m2 Lab Interpretation (test code = Abnormal 44364-0) CBC WITH [id number] 08:46:08 Test Item Value Reference Range Comments WBC (test code = 6690-2) 9.32 k/uL 4.5- 11.0 k/uL RBC (test code = 789-8) 5.14 M/uL 3.8- 5.2 M/uL Hemoglobin (test code = 718-7) 15.6 g/dL 12-16 Hematocrit (calc.) (test code = 4544-3) 47.7 % 35-47 MCV (test code = 787-2) 93 fL 80-100 MCH (test code = 785-6) 30.4 pg 26-34 MCHC (calc.) (test code = 786-4) 32.7 g/dL 32-36 RDW (test code = 788-0) 12.4 % 0-14.5 Platelet (test code = 777-3) 215 k/uL 150- 440 k/uL Mean Platelet Volume (test code = 99498-0) 10.0 fL 7.4-1 0.6 RBC Nucleated (test code = 40559-4) 0.00 /100 WBC /100 WBC Absolute NRBC (test code = 771-6) <0.01 k/uL Neutrophil (%) (test code = 11403-3) 67 % Lymphocyte (%) (test code = 736-9) 24 % Monocyte (%) (test code = 5905-5) 8 % Eosinophil (%) (test code = 713-8) 1 % Basophil (%) (test code = 706-2) 0 % Immature Granulocytes (%) (test code = 0 % 20418-2) Neutrophil (#) (test code = 48972-7) 6.22 k/uL 1.8- 7.7 k/ uL Lymphocyte (#) (test code = 731-0) 2.25 k/uL 1.0- 4.8 k/uL Monocyte (#) (test code = 742-7) 0.71 k/uL 0.0- 0.8 k/uL Eosinophil (#) (test code = 711-2) 0.07 k/uL 0.0- 0.5 k/uL Basophil (#) (test code = 704-7) 0.04 k/uL 0.0- 0.2 k/uL Immature Granulocytes (#) (test code = 0.03 k/uL k/uL 86287-2) Lab Interpretation (test code = 72339-5) Abnormal Assessments Condition Name Status Diagnosis Date Treating Clinici an Tobacco use disorder Active Tobacco use Active Lymphosarcoma, unspecified site, 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, unspecified site Active Lymphosarcoma, unspecified site, 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, unspecified site Active Lymphosarcoma, unspecified site, 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 For more information, please contact: [facility] [address] [place] [id number] Encounters Start End Encounter Admission Attending Care Care Encounter Date/Time Date/Time Type Type Clinicians Facility Department ID 2020-01-18 2020-01-18 [facility] [id number] 10:43:57 23:59:00 2020-01-18 2020-01-18 Garrett MCKENZIE [facility] [id number] 09:43:11 09:43:11 JAYLON 2019-10-12 2019-10-12 [facility] [id number] 10:30:00 23:59:00 2019-07-06 2019-07-06 Garrett MCKENZIE [facility] [id number] 04:00:00 04:00:00 JAYLON 2019-04-11 2019-04-11 Out[facility] [id number] 10:52:28 23:59:00 2019-04-06 2019-04-06 Garrett MCKENZIE [facility] [id number] 04:00:00 04:00:00 JAYLON 2019-03-30 2019-03-30 [facility] [id number] 09:00:00 23:59:00 2018-12-29 2018-12-29 [facility] [id number] 10:40:00 23:59:00 2018-12-29 2018-12-29 Garrett MCKENZIE [facility] [id number] 10:40:00 23:59:00 JAYLNO 2018-12-29 2018-12-29 [facility] [id number] 09:15:00 10:39:00 2018-09-29 2018-09-29 [facility] [id number] 10:05:12 23:59:00 2018-09-29 2018-09-29 [facility] [id number] 09:09:01 10:04:00 2018-09-22 2018-09-22 Q R KNUPP, [facility] [id number] 04:00:00 04:00:00 JAYLON 2018-06-23 2018-06-23 Outpatient [facility] [id number] 10:15:00 23:59:00 2018-06-23 2018-06-23 Q Terri FERGUSONGeovany [facility] [id number] 10:15:00 23:59:00 JAYLON 2018-06-23 2018-06-23 Outpatient [facility] [id number] 09:10:24 10:14:00 2018-04-05 2018-04-05 Outpatient Terri FREEMAN, [facility] [id number] 10:42:54 23:59:00 JAYLON 2018-04-05 2018-04-05 [facility] [id number] 10:42:54 23:59:00 2018-03-24 2018-03-24 [facility]patient [facility] [id number] 09:43:20 23:59:00 2018-03-24 2018-03-24 Garrett MCKENZIE, [facility] [id number] 09:43:20 09:43:20 JAYLON 2018-03-24 2018-03-24 Outpatient [facility] [id number] 08:30:00 09:42:00 2018-02-17 2018-02-17 Q Terri MCKENZIE, [facility] [id number] 04:00:00 04:00:00 JAYLON 2017-10-28 2017-10-28 Outpatient [facility] [id number] 09:51:51 23:59:00 2017-10-28 2017-10-28 Q Terri MCKENZIE, [facility] [id number] 09:51:51 23:59:00 JAYLON Immunizations Ordered Immunization Filled Immunization Date Status Commen ts Refusal Reason Name Name Influenza Virus 2018-12-29 Completed Vaccine, Injection 00:00:00 Influenza Virus 2018-12-29 Completed Vaccine, Injection 00:00:00 Influenza Virus 2018-01-18 Completed Vaccine, Injection 00:00:00 Influenza Virus 2018-01-18 Completed Vaccine, Injection 00:00:00 Influenza Virus 2017-01-21 Completed Vaccine, Injection 00:00:00 Influenza Virus 2017-01-21 Completed Vaccine, Injection 00:00:00 Payers Payer Name Policy Type Policy Number Effective Date Expiration D ate MEDICAIDMEDICAID GALO [id number] 00:00:00 [id number] MEDICAID [facility] ACCESS [id number] Plan of Treatment Planned Activity Planned Date Details Comments Future Scheduled Test [code = ] Social History Social Habit Start Date Stop Date Comments Cigarettes smoked current (pack per 2020-01-18 00:00:00 00:00:00 day) - Reported Tobacco use and exposure 2020-01-18 00:00:00 2020-01-18 00:00:00 Smoking Status Start Date Stop Date History of tobacco use Current every day smoker 2020-01-18 00:00:00 2020-01-18 00:0 0:00 Vital Signs This patient has no known vital signs.
== END ==
LOC: RAD 13:04
PROVIDERS: ATTEND Physician Assistant
DX: R51.9 Headache, unspecified (principal); Z86.73 Personal history of transient ischemic attack (TIA), and cerebral infarction without residual deficits
CPT/HCPCS: 70450

== ENCOUNTER → 2020-02-07 | Outpatient (CLI) | payer MEDICAID ==
--- NOTE | 2020-02-07 16:12 | RADIOLOGY REPORT (SQ) ---
EXAM DESCRIPTION: CAROTID DOPPLER IMAGES COMPLETED DATE/TIME: 02/07/2020 4:01 pm REASON FOR STUDY: HX OF CAROTID STENOSIS Z86.79 PERSONAL HISTORY OF OTHER DISEASES OF THE CIRCULATO RY COMPARISON: None. TECHNIQUE: Grayscale ultrasound, Doppler velocity and spectra, and color Doppler images acquired of the extra-cranial carotid and vertebral arteries. Images stored on PACS. LIMITATIONS: None. FINDINGS: RIGHT CAROTID CCA Velocities: Elevated velocity 3.45 m/sec. ICA Velocities Peak systolic 1.06 m/s. End diastolic 0.29 m/s. Proximal ICA/CCA peak systolic ratio 0.3. Moderate homogeneous plaque bifurcation and proximal ICA. LEFT CAROTID CCA Velocities: Within normal limits. ICA Velocities Peak systolic 1.18 m/s. End diastolic 0.41 m/s. Proximal ICA/CCA peak systolic ratio 1.1. Moderate plaque bifurcation and proximal ICA. VERTEBRAL ARTERIES: Antegrade flow. Normal waveforms. SUBCLAVIAN ARTERIES: Not imaged. OTHER: No other significant finding. IMPRESSION: Elevated velocity distal right common carotid artery suggesting greater than 70% stenosi s. RECOMMENDATION: Doppler can overestimate the degree of stenosis. Consider correlation with CT angio graphy. COMMENT: Quality ID #[id number]: Velocity criteria are extrapolated from the diameter data as defined by t he Society of Radiologists in Ultrasound Consensus Conference. Radiology 2003: 229; 340-346. TECHNICAL DOCUMENTATION: JOB ID: [id number] 2010 [employer]- All Rights Reserved Reading location - IP/workstation name: [email or web address]
== END ==
LOC: SP 14:40
PROVIDERS: ATTEND Physician Assistant
DX: I65.21 Occlusion and stenosis of right carotid artery (principal); Z09 Encounter for follow-up examination after completed treatment for conditions other than malignant neoplasm; Z86.79 Personal history of other diseases of the circulatory system
CPT/HCPCS: 93880